=== PATIENT | female | born 1940 ===

== ENCOUNTER → 2017-05-03 13:39 | Inpatient (IN) | payer OTHER ==
[~2017-05-03] VITALS: Ht 165.1 cm; Wt 63.5 kg
[~2017-05-03 13:39] MED LIST: ASA81 MG PO; B-121000 MCG PO; CALCIUM600 MG PO; CLONAZEPAM1 MG PO; DILTIAZEM ER180 M2 PO; DOCUSATE SODIU100 MG PO; FOLIC ACID1 MG PO; FOSAMAX70 MG PO; GABAPENTIN600 MG PO; HYDROXYUREA PO; LASIX20 MG PO; LEVO-T100 MCG PO; OMEPRAZOLE20 M1 PO; PERCOCET 5-3251 EACH PO; VASOTEC10 MG PO
== END | disposition home or self-care (01) | DRG 472 ==
LOC: SURG 05-02 04:10 → O/R 05-02 04:10 → EDBD 04-27 08:00 → O/R 05-02 04:10 → SURH 05-02 04:10 → EDBD 05-08 08:00 → SURG 05-08 08:00
PROVIDERS: Orthopaedic Surgery Orthopaedic Surgery of the Spine
PROC: 0RG20K0 Fusion of 2 or more Cervical Vertebral Joints with Nonautologous Tissue Substitute, Anterior Approach, Anterior Column, Open Approach (ICD-10-PCS; 2017-05-02)
PROC: 0RG20A0 Fusion of 2 or more Cervical Vertebral Joints with Interbody Fusion Device, Anterior Approach, Anterior Column, Open Approach (ICD-10-PCS; 2017-05-02)
PROC: 0RT30ZZ Resection of Cervical Vertebral Disc, Open Approach (ICD-10-PCS; principal; 2017-05-02 13:00)
DX: M50.01 Cervical disc disorder with myelopathy, high cervical region (principal); M47.12 Other spondylosis with myelopathy, cervical region; I10 Essential (primary) hypertension; E03.8 Other specified hypothyroidism